=== PATIENT | male | born 1950 | race Caucasian/White ===

== ENCOUNTER 2022-05-18 08:39 | Outpatient (CLI) | payer MEDICARE, OTHER | END 2022-05-18 08:40 | disposition home or self-care (01) | LOC: CSHULT 08:39 | PROVIDERS: ATTEND Physician Assistant | DX: R74.8 Abnormal levels of other serum enzymes (principal); R19.7 Diarrhea, unspecified; K76.9 Liver disease, unspecified; K76.89 Other specified diseases of liver | CPT/HCPCS: 76700 ==

== ENCOUNTER 2022-05-25 09:47 | Day surgery (SDC) | payer MEDICARE, OTHER ==
[2022-05-24 08:50] VITALS: BMI 27.1
[2022-05-25] MEDS ORDERED: Lidocaine 2% MPF 10 ML AMP (For Epidural Use) ONE (11:33)
[2022-05-25] MEDS ORDERED: PROPOFOL 40 ML ONE (11:33)
== END 2022-05-25 13:46 | disposition home or self-care (01) ==
LOC: CSHSDC 09:47
PROVIDERS: ATTEND Surgery
PROC: 0DBP8ZZ Excision of Rectum, Via Natural or Artificial Opening Endoscopic (ICD-10-PCS; principal; 2022-05-25)
DX: Z12.11 Encounter for screening for malignant neoplasm of colon (principal); D12.8 Benign neoplasm of rectum; I10 Essential (primary) hypertension; E78.5 Hyperlipidemia, unspecified; G47.00 Insomnia, unspecified; I25.10 Atherosclerotic heart disease of native coronary artery without angina pectoris; Z88.8 Allergy status to other drugs, medicaments and biological substances; Z87.891 Personal history of nicotine dependence; Z79.899 Other long term (current) drug therapy; Z79.82 Long term (current) use of aspirin; Z91.030 Bee allergy status
CPT/HCPCS: 88305; 93005; 93010; J2704